=== PATIENT | female | born 1950 | race Asian ===

== ENCOUNTER → 2019-01-10 09:24 | Outpatient (CLI) | payer MEDICARE, OTHER, SELFPAY | PROVIDERS: PCP Internal Medicine; Visit Provider Internal Medicine | DX: Z13.820 Encounter for screening for osteoporosis (principal); M85.88 Other specified disorders of bone density and structure, other site; Z78.0 Asymptomatic menopausal state; Z82.62 Family history of osteoporosis | CPT/HCPCS: 77080 ==

== ENCOUNTER → 2020-09-28 09:50 | Outpatient (CLI) | payer MEDICARE, OTHER, SELFPAY ==
[2020-09-28 12:34] LABS: COVID19 -Nasal RAPID Negative (Negative)
== END ==
PROVIDERS: PCP Internal Medicine; Visit Provider Surgery
DX: Z20.822 Contact with and (suspected) exposure to COVID-19 (principal)
CPT/HCPCS: 87635; C9803

== ENCOUNTER 2020-09-29 13:55 | Day surgery (SDC) | payer MEDICARE, OTHER, SELFPAY ==
[2020-09-29] VITALS (7 sets, daily range): BP systolic 109–142; BP diastolic 66–90; PULSE 62–74; RESP 12–67; TEMP 36.4–37.4; O2SAT 12–100; BMI 21.4
--- NOTE | 2020-09-29 | PATH_ITS ---
[facility] Accession Number: [id number] . 01 Material submitted: . cecum - CECUM POLYP . 02 Diagnosis: Cecum, Polyp, Biopsy: Inflammatory polyp. Negative for dysplasia and malignancy. MRV 10/02/2020 1406 Local . 02 Electronically signed: . Octavia De Los Santos MD, Pathologist NPI- [id number] . 01 Gross description: . CECUM POLYP: Received in formalin is 1 fragment(s) of collado, soft tissue measuring 0.6 x 0.5 x 0.5 cm submitted entirely in 1 cassette(s) /NEO 09/30/2020 1905 Local . 02 Pathologist provided ICD-10: K63.5 . 02 CPT . 005178 Performed at: [address] [facility] [address] [id number] MD Stoney Martinez MD Phone: [phone] Performed at: 02 [facility] [address] [place], [place] [id number] MD Octavia De Los Santos MD Phone: [phone]
--- NOTE | 2020-09-29 15:24 | P.OP.ENDO_ITS ---
Operative Date/Time/Diagnoses Date of procedure: 09/29/20 Time of procedure: 15:25 Pre-op diagnosis: Constipation, rectal bleeding Post-op diagnosis: other (1 cm adenomatous colon polyp in the cecum, grade 2-3 internal hemorrhoids with stigmata of recent bleeding) Procedure & Clinicians Study performed: Colonoscopy Procedural sedation performed by the endoscopist Polypectomy with cold snare x1 Same procedure as scheduled: Yes Indications: Constipation, rectal bleeding Surgeon: Bre Oden Procedure Notes SCOAP/Timeout: Performed Procedure in detail: The patient was brought to the room and placed in left lateral decubitus position with all bony prominences padded. A time-out was performed and then the patient was given procedural sedation starting with 2 mg of Versed and 100 mcg of fentanyl. A total of 4 mg of Versed and 150 micro g of fentanyl were given for the entire procedure. Vitals were monitored throughout the procedure and remained stable. Once adequately sedated, the procedure was begun. A rectal exam was performed revealing no abnormalities. The colonoscope was then introduced to the rectum and advanced to the cecum in the usual fashion. The cecum was identified by the appendiceal orifice, the mucosal tri- fold, and the ileocecal valve. There was a 1 cm polyp in the cecum, which removed completely with cold snare. It was sent for pathology. The scope was then retracted while rotating side to side and examining each mucosal fold. At the conclusion of the procedure retroflexion was performed and moderate grade 2- 3 internal hemorrhoids with stigmata of bleeding were seen. The scope was then withdrawn from the rectum the procedure was concluded. The patient tolerated the procedure well and was transferred to the PACU in stable condition. Scope withdrawal time: 10 Sedation minutes: 22 Findings: internal hemorrhoids and polyp Specimen(s): other (Cecal polyp) Complications: none Impression: Polyp appears to be benign/precancerous. The hemorrhoids are the likely source of bleeding. Post-procedure Recommendations: Colonscopy in 5 years (Due to moderate-sized adenomatous polyp. Final recommendation will depend on pathology results, and will be sent to the patient in the mail.) Follow up: as needed Disposition: PACU
--- NOTE | 2020-09-29 15:24 | PM.PREOP ---
Pre-operative Note COVID-19 COVID-19 status: Negative Result date/Date tested (Pos, Neg/Pending): 09/28/20 Interval Note History & Physical reviewed/Exam performed by Physician: Yes Changes to H&P: No ASA Class (for procedural sedation): I
[2020-09-29] MEDS: MIDAZOLAM 5 MG/5 ML VIAL IV (15:39)
[2020-09-29] MEDS: fentaNYL 250 MCG/5 ML INJ IV (15:39)
[2020-09-29] MEDS: SODIUM CHLORIDE 0.9% 1,000 ML 200 ML IV (16:23)
== END 2020-09-29 16:40 | disposition home or self-care (01) ==
PROVIDERS: PCP Internal Medicine; Referring Provider Surgery; Visit Provider Surgery
PROC: 0DJD8ZZ Inspection of Lower Intestinal Tract, Via Natural or Artificial Opening Endoscopic (ICD-10-PCS; CPT 45378; principal; 2020-09-29 15:15)
DX: K62.5 Hemorrhage of anus and rectum (principal); K59.00 Constipation, unspecified; K64.1 Second degree hemorrhoids; K63.5 Polyp of colon
CPT/HCPCS: 45385; 99152; J2250; J3010

== ENCOUNTER → 2022-07-06 10:47 | Outpatient (CLI) | payer MEDICARE, OTHER, SELFPAY ==
--- NOTE | 2022-07-06 10:48 | DI.CT.S_ITS ---
PROCEDURE: CT SINUS SCREEN WO CON INDICATIONS: Chronic pansinusitis TECHNIQUE: Noncontrast 3.0 mm axial images acquired from the frontal sinuses to the mid-sella, with coronal and sagittal reformats. For radiation dose reduction, the following was used: automated exposure control, adjustment of mA and/or kV according to patient size. COMPARISON: None. FINDINGS: Image quality: Excellent. Maxillary Sinuses: Sequelae of probable trauma includes defect in the maxillary roof, medial wall and floor as well as large nasal antral window and absence of the left middle turbinate. No evidence of mucosal thickening. Retention cyst in the right maxillary sinus measures 1.2 cm. Ostiomeatal unit and on the right is clear. Ethmoid Air Cells: There is fracture or dehiscence of the lamina but appreciate. Orbital fat fills a left-sided ethmoid air cells. No mucosal thickening. Sphenoid Sinuses: No bony remodeling or destruction. Sinuses are clear. Frontal Sinuses: No bony remodeling or destruction. Sinuses are clear. Miscellaneous: Sequelae of prior left orbital trauma includes ossification of a left orbital mesh repair as well as linear ossification associated with the superior extraconal orbit. Defect in the left squamous old temporal bone measures 1.3 cm IMPRESSION: 1. Traumatic sequelae in the left orbital and maxillary sinus as above. There is also a defect in the left squamous temporal bone. Differential includes traumatic sequelae and less likely osteolytic neoplasm. Comparison with prior exams and or follow-up contrast MRI advised. 2. Small right maxillary sinus mucosal retention cyst. Dictated by: Juan Pope M.D. on 07/06/2022 at 14:55 Approved by: Juan Pope M.D. on 07/06/2022 at 16:17
== END ==
PROVIDERS: PCP Internal Medicine; Referring Provider Otolaryngology; Visit Provider Otolaryngology
DX: J32.4 Chronic pansinusitis (principal); J34.1 Cyst and mucocele of nose and nasal sinus; S05.92XS Unspecified injury of left eye and orbit, sequela
CPT/HCPCS: 70486

== ENCOUNTER → 2022-07-11 14:53 | Outpatient (CLI) | payer MEDICARE, OTHER, SELFPAY ==
--- NOTE | 2022-07-11 | DI.RAD.S_ITS ---
PROCEDURE: XR CHEST 2V INDICATIONS: COUGH FOR TWO MONTHS TECHNIQUE: 2 views of the chest were acquired. COMPARISON: None. FINDINGS: Surgical changes and devices: None. Lungs and pleura: Lungs are clear. No pleural effusions or pneumothorax. Mediastinum: Mediastinal contours are normal. Heart size is normal. Bones and chest wall: No suspicious bony abnormalities. Soft tissues appear unremarkable. IMPRESSION: No acute cardiopulmonary abnormality. Dictated by: Juarez Romo M.D. on 07/11/2022 at 17:34 Approved by: Juarez Romo M.D. on 07/11/2022 at 17:35
== END ==
PROVIDERS: PCP Physician Assistant; Referring Provider Physician Assistant; Visit Provider Physician Assistant
DX: R05.9 Cough, unspecified (principal)
CPT/HCPCS: 71046

== ENCOUNTER → 2022-08-04 12:48 | Outpatient (CLI) | payer MEDICARE, OTHER, SELFPAY ==
[2022-08-04 13:32] LABS: COVID19 -Nasal RAPID Negative (Negative)
== END ==
PROVIDERS: PCP Physician Assistant; Referring Provider Internal Medicine; Visit Provider Internal Medicine
DX: Z20.822 Contact with and (suspected) exposure to COVID-19 (principal)
CPT/HCPCS: 87635; C9803

== ENCOUNTER → 2022-08-04 13:14 | Outpatient (CLI) | payer MEDICARE, OTHER, SELFPAY ==
--- NOTE | 2022-08-04 | DI.RAD.S_ITS ---
PROCEDURE: FL BARIUM SWALLOW W SPEECH INDICATIONS: Chronic cough COMPARISON: None. TECHNIQUE: Examination was conducted in conjunction with speech pathology per standard protocol. In the lateral projection, filming was performed of the patient swallowing. AP projection filming may also be performed with patient swallowing. COMPARISON: FINDINGS: Function: The oral preparatory phase appears normal, with proper containment. The subsequent oral propulsive phase, pharyngeal phase, and esophageal phase of swallowing also appear normal with all proffered substances. No laryngotracheal penetration or aspiration. No pathologic vallecular pooling. Morphology: No cricopharyngeal bar is identified. No cervical esophageal webs. No Zenker's diverticulum. No strictures. At the end of the exam, a calibrated barium tablet was given. There is a transient obstruction of the tablet at the gastroesophageal junction. IMPRESSION: 1. No laryngeal penetration or aspiration. Please see separate speech pathologist is report. 2. Transient obstruction of a calibrated barium tablet at the gastroesophageal junction. Recommend esophagram or EGD for further evaluation. Dictated by: Evelio Wallace M.D. on 08/05/2022 at 12:15 Approved by: Evelio Wallace M.D. on 08/05/2022 at 12:17
--- NOTE | 2022-08-04 14:13 | ST.SWALLOW ---
Visit Care Team Role Provider Type Theresa Merlos PA-C Primary Care Provider Non-Staff Specialty: Medical Address: [address] [place] [address], [id number] Email: Jonas Guzman MD Attending Provider Physician Referring Provider Specialty: Ear, Nose, Throat Address: [address] [place] [address], [id number] Email: [email or web address] Modified Barium Swallow Study SENIOR DATA SCIENTIST Modified Barium Swallow Study Start: 08/04/22 13:54 Freq: Status: Active Protocol: Document 08/04/22 13:54 ZS (Rec: 08/04/22 14:13 ZS [id number]) Modified Barium Swallow Study Total Time Visit Start Time 13:30 Visit Stop Time 14:00 Total Visit Minutes 30 Visit Information Visit Number Initial Evaluation Setting Setting Outpatient Care Patient Information Identification Type Name Patient History Melissa is a 71-year old female referred for a modified barium swallow study due to a chronic cough. Melissa reported the cough started about 2.5 months ago and for the first week it was dry and less frequent. After the first week , pt stated the cough was more junky and frequent. She added the cough is present throughout the day and sometimes when she is sleeping . Cough is sometimes so intense it will cause her to vomit, per pt. Pt stated she went on vacation to [place] prior to cough starting and both people she was traveling with also had a cough, though their cough resolved while hers worsened. Subjective Observations Pt arrived on time and was coughing during case history. She held a water bottle and stated she will take drinks because her throat feels crackly and dry. Pt reported having small sips of strong liquor help to numb the pain in her throat from consistent coughing, though she does not like to drink. Provided education regarding process and procedure and pt expressed understanding and agreed to participate. Patient Positioning Position View Lat-A/P Imaging Lateral View Textures Administered Trials Presented Thin Liquid via Cup,[place] Liquid via Cup,Regular Textures Oral Phase Source: MBSIMP (TM) (C) Bolus Specific Scoring Grid Lip Closure No Impairment (WNL) Tongue Control During Bolus Hold No Impairment (WNL) Bolus Prep/Mastication No Impairment (WNL) Bolus Transport/Lingual Motion No Impairment (WNL) A/P Lingual Propulsion Delay No Oral Residue WFL Residue Clearing No Impairment (WNL) Nasal Regurgitation No Additional Oral Phase Observations No anterior or posterior loss of bolus during tongue hold. Mastication and a/p propulsion of bolus were timely and efficient. Mild oral residue which spilled into valleculae and pyriforms following initial swallow. Resiude was cleared with spontaneous second swallow and residue was WFL for all successive trials . Pharyngeal Phase Source: MBSIMP (TM) (C) Bolus Specific Scoring Grid Delayed Initiation of Pharyngeal Swallow Yes: head of bolus in pyriforms Soft Palate Elevation No Impairment (WNL) Tongue Base Strength/Range of Motion Minimal Impairment Residue Along the Tongue Base Yes Clearance of Residue Along Tongue Base WFL Laryngeal Elevation No Impairment (WNL) Anterior Hyoid Movement No Impairment (WNL) Epiglottic Range of Motion No Impairment (WNL) Vallecular Residue Yes Clearance of Vallecular Residue WFL Laryngeal Vestibular Closure No Impairment (WNL) Pharyngeal Stripping Wave Minimal Impairment Pharyngeal Contraction No Impairment (WNL) Posterior Pharyngeal Wall Residue No Upper Esophageal Sphincter Opening No Impairment (WNL) Residue in the Pyriform Sinuses Yes: only initial trial Clearance of Residue in the Pyriform No Impairment (WNL) Sinuses Pharyngoesophageal Backflow Observed No Additional Pharyngeal Phase Observations Delayed initiation of pharyngeal swallow, with head of the bolus between valleculae and pyriforms. Following initial swallow, residue from oral cavity spilled into valleculae and pyriforms, though this was cleared with a spontaneous second swallow. Base of tongue weakness and reduced pharyngeal stripping wave may be contributing to increased residue in valleculae and pyriforms, though pt clears residue WNL and residue is minimal. Laryngeal vestibular closure was WNL as was hyoid elevation and excursion. Coughing was observed during session, though no laryngeal penetration or aspiration was observed during evaluation. Given cough is persistent through the day and swallow was WNL, aspiration/ penetration is not likely to be source of cough. A/P View Textures Administered Trials Presented Thin Liquid via Cup,Barium Tablet A/P View Observations Pharyngeal Contraction No Impairment (WNL) Esophageal Function Narrowing Additional Observations Pt exhibited timely and efficient clearing of thin barium through esophagus, however, barium tablet experienced prolonged pause with suspected narrowing near gastroesophageal sphincter. Tablet did clear at conclusion of study, though 5 drinks of thin liquid were required to clear. Clinical Impressions Dysphagia Type WNL Findings The pt presents with swallowing WNL. She exhibited some oral and pharyngeal residue, though WFL and cleared with a spontaneous second swallow. No instances of aspiration or penetration were observed and cough was observed throughout study with no correlation to oral intake . Given cough is persistent through the day and swallow was WNL, aspiration/ penetration is not likely to be source of cough. Possible narrowing observed with barium tablet during esophageal phase of swallow. Recommend GI referral to further explore esophageal phase. Speech therapy may be pursued for exercises to further reduce oral and pharyngeal residue, though pt's swallow is WFL. Recommendations Diet Liquids Order Thin Diet Order Regular Medication Recommendation As Tolerated Aspiration Precautions Recommended Precautions Upright at 90 Degrees, Effortful Swallow Treatment Plan Recommended Referrals GI Consult Compensatory Strategies Recommendations Sitting Upright (90 deg)
== END ==
PROVIDERS: PCP Physician Assistant; Referring Provider Otolaryngology; Visit Provider Otolaryngology
DX: R05.3 Chronic cough (principal)
CPT/HCPCS: 74230; 92611

== ENCOUNTER → 2022-08-04 13:17 | Outpatient (CLI) | payer MEDICARE, OTHER, SELFPAY ==
--- NOTE | 2022-08-17 07:55 | P.PFT.S_ITS ---
Pulmonary Function Test Referral & Results Date Patient Seen: 08/04/22 Requesting provider: Theresa Merlos Results: The spirometry demonstrates an FVC of 2.45 L which is 81% of predicted. The FEV1 was measured at 1.98 L which is 86% of predicted. The FEV1/FVC ratio was 81 which is 106% of predicted. Interpretation: This study, which is limited to forced spirometry alone, demonstrates normal sp irometry
== END ==
PROVIDERS: PCP Physician Assistant; Referring Provider Physician Assistant; Visit Provider Physician Assistant
DX: R05.1 Acute cough (principal); Z20.822 Contact with and (suspected) exposure to COVID-19; R05.3 Chronic cough
CPT/HCPCS: 74230; 87635; 92611; 94010; C9803